=== PATIENT | female | born 1960 | race Two or more races ===

== ENCOUNTER → 2019-06-13 | Outpatient (CLI) | payer BC ==
--- NOTE | 2019-06-15 10:21 | MM ---
Reason for exam: screening (asymptomatic). History: Patient is postmenopausal and has history of other cancer at age 58. Physical Findings: A clinical breast exam by your physician is recommended on an annual basis and results should be correlated with mammographic findings. MG Screening Mammo w CAD Bilateral CC and MLO view(s) were taken. No prior studies available for comparison. There are scattered fibroglandular densities. No suspicious abnormality. ASSESSMENT: Negative, BI-RAD 1 RECOMMENDATION: Routine screening mammogram of both breasts in 1 year.
== END | disposition home or self-care (01) ==
LOC: RADMAMWWP 10:05
PROVIDERS: ATTEND Family Medicine
DX: Z12.31 Encounter for screening mammogram for malignant neoplasm of breast (principal)
CPT/HCPCS: 77067

== ENCOUNTER 2019-08-07 10:20 | Day surgery (SDC) | payer BC ==
[2019-07-30 13:43] VITALS: BMI 38.2
[~2019-08-07 10:20] MED LIST: LACTATED RINGERS 1,000 ML IV SCH; LIDOCAINE 1% 20 ML VIAL (10MG/ML) FOR IV START INTRADERMA PRN
[2019-08-07 10:50] VITALS: RESP 16; TEMP 97.6
[2019-08-07] MEDS ORDERED: hydrALAZINE HCL 20 MG/ML 1 ML VIAL IV ONE (10:56)
[2019-08-07] MEDS ORDERED: MIDAZOLAM 2 MG/2 ML VIAL IV ONE (10:57)
[2019-08-07] MEDS ORDERED: LIDOCAINE 1% INJ 10MG/ML (20 ML MDV) ONE (12:22)
[2019-08-07] MEDS ORDERED: PROPOFOL 10 MG/ML 20 ML VIAL IV ONE (12:22)
--- NOTE | 2019-08-07 12:45 | P.PCN ---
Date of Procedure: 08/07/19 Procedure(s) Performed: BRIEF HISTORY: Patient is a 58-year-old pleasant female scheduled for an elective colonoscopy as a part of evaluation of positive cologuard PROCEDURE PERFORMED: Colonoscopy with snare polypectomy. PREOPERATIVE DIAGNOSIS: Positive cologuard. IV sedation per Anesthesia. PROCEDURE: After informed consent was obtained, the patient, was brought into the endoscopy unit. IV sedation was administered by Anesthesia under continuous monitoring. Digital rectal examination was normal. Initially the Olympus CF-160 flexible video colonoscope was then inserted in the rectum, gradually advanced into the cecum without any difficulty. Careful examination was performed as the scope was gradually being withdrawn. Ileocecal valve and the appendiceal orifice were visualized and appeared normal. Prep was excellent. Mucosa of the cecum, ascending colon, transverse colon Appeared normal. In the descending colon there was a 5 mm sessile polyp that was removed by snare polypectomy. Rest of the, descending colon, sigmoid colon, and rectum appeared normal. In the mid rectum there was a 1.5 cm broad-based polyp removed by snare polypectomy. Retroflexion was performed in the rectum and no lesions were seen. The patient tolerated the procedure well. IMPRESSION: 5 mm descending colon polyp status post polypectomy 1.5 cm mid rectal polyp status post snare polypectomy. RECOMMENDATIONS: Findings of this examination were discussed with the patient well as her family. She was advised to follow with the biopsy results. If the biopsy shows an adenoma she can have a repeat colonoscopy in 3 years.
[2019-08-07 13:18] VITALS: BP 124/84; PULSE 79
== END 2019-08-07 13:55 | disposition home or self-care (01) ==
LOC: ORWHC2ENDO 10:20
PROVIDERS: ATTEND Internal Medicine Gastroenterology
DX: D12.4 Benign neoplasm of descending colon (principal); D12.8 Benign neoplasm of rectum; K21.9 Gastro-esophageal reflux disease without esophagitis; Z79.899 Other long term (current) drug therapy; Z85.828 Personal history of other malignant neoplasm of skin
CPT/HCPCS: 88305; 45385; J2250; J0360; J2001; J2704

== ENCOUNTER → 2022-11-21 | Outpatient (CLI) | payer BC ==
--- NOTE | 2022-11-21 10:45 | MR ---
EXAMINATION TYPE: MR MRCP DATE OF EXAM: 11/21/2022 COMPARISON: Ultrasound 09/28/2022 HISTORY: Abnormal US Standard multiplanar, multisequence MRI departmental protocol Multiplanar, multisequence images of the MRCP were acquired without contrast. FINDINGS: 1. There is gallbladder wall thickening with an area of abnormal signal involving the gallbladder cou ld represent polyp or stone. Gallbladder neoplasm is not entirely excluded but felt less likely. Ther e is a punctate 1 to 2 mm simple cyst bilateral hepatic lobes which have a benign appearance. Pancreas is normal. Common bile duct measures 9 mm and is mildly dilated patient's age group. No defi nite intraluminal abnormal signal seen to suggest obstructing calcification. No sizable intrahepatic ductal dilation. There is a moderate to large sized hiatal hernia. Hypertrophic and degenerative changes of the spine. Spleen has a homogeneous signal pattern and there is no hydronephrosis or devices. Bosniak I classi fication subcentimeter cyst mid cortex right kidney. There is a vertebral body hemangioma involving t he upper lumbar spine. IMPRESSION: 1. There is a gallbladder wall thickening with a probable gallstone or gallbladder polyp correlate fo r cholecystitis. 2. Extrahepatic bile duct is at the mildly dilated with no definite intraluminal calcification noted. There is no intrahepatic biliary ductal dilation. 3. Bosniak classification 1 simple right renal cyst 4. Subcentimeter multiple hepatic simple appearing cysts.
== END | disposition home or self-care (01) ==
LOC: RADMRIMAIN 08:48
PROVIDERS: ATTEND Nurse Practitioner Family
DX: N28.1 Cyst of kidney, acquired (principal); K83.8 Other specified diseases of biliary tract; R93.2 Abnormal findings on diagnostic imaging of liver and biliary tract
CPT/HCPCS: 74181